=== PATIENT | female | born 1930 | race African-American/Black ===

== ENCOUNTER 2019-02-28 16:44 | Emergency (ER) | payer MEDICARE ==
[~2019-02-28] VITALS: Ht 162.6 cm; Wt 85.9 kg
[2019-02-28 16:59] VITALS: Ht 162.6 cm; Wt 85.9 kg
[2019-02-28 17:28] LABS: BASOPHILS 0.5 % (0-2); EOSINOPHILS 0.7 % (0-7); HEMATOCRIT 35.3 % (36.0-48.0); HEMOGLOBIN 12.2 g/dL (12-16); IMMATURE GRANULOCYTES 0.2 % (0-5); LYMPHOCYTES 25.3 % (15-50); MCH 30.6 pg (26.0-34.0); MCHC 34.6 g/dL (31.0-37.0); MCV 88.5 fL (80.0-100.0); MEAN PLATELET VOLUME 8.9 fL (7.4-10.4); MONOCYTES 9.3 % (2-11); PLATELET COUNT 209 10x3/uL (130-400); RBC 3.99 10x6/uL (4.00-5.40); RDW 13.9 % (11.5-14.5); WBC 6.1 10x3/uL (4.8-10.8)
[2019-02-28 17:44] LABS: ALBUMIN 3.3 g/dL (3.4-5.0); ALKALINE PHOSPHATASE 145 U/L (46-116); ALT (SGPT) 24 U/L (10-68); BILIRUBIN - TOTAL 0.43 mg/dL (0.2-1.3); CALC OSMOLALITY 278 mosm/kg (275-300); CALCIUM 10.8 mg/dL (8.5-10.1); CARBON DIOXIDE 27.5 mmol/L (21.0-32.0); CHLORIDE - SERUM 99 mmol/L (98-107); GLUCOSE 153 mg/dL (74-106); POTASSIUM - SERUM 4.4 mmol/L (3.5-5.1); SODIUM 136 mmol/L (136-145); UREA NITROGEN 25 mg/dL (7-18); eGFR NON AFRICAN AMERICAN 25 mL/min (90-120)
[2019-02-28 17:47] LABS: AMYLASE - SERUM 41 U/L (25-115); LIPASE 120 U/L (73-393)
[2019-02-28 17:48] LABS: TROPONIN-I < 0.017 ng/mL (0.000-0.060)
[2019-02-28 19:25] LABS: APPEARANCE CLEAR (CLEAR); BILIRUBIN NEGATIVE (NEGATIVE); COLOR STRAW (YELLOW); GLUCOSE NEGATIVE (NEGATIVE); KETONE NEGATIVE (NEGATIVE); NITRITE NEGATIVE (NEGATIVE); PROTEIN TRACE mg/dL (NEGATIVE); UROBILINOGEN NORMAL (NORMAL)
[2019-02-28 19:26] LABS: RED CELLS - URINE 0-5 /hpf (0-5)
[2019-02-28 19:27] LABS: BACTERIA MANY /hpf (NONE SEEN); EPITHELIAL CELLS 0-5 /hpf (0-5)
[2019-02-28 22:27] VITALS: BP 162/82
== END 2019-02-28 22:30 | disposition other institution (70) ==
LOC: D.ER 16:44
PROVIDERS: Family Medicine
DX: C85.90 Non-Hodgkin lymphoma, unspecified, unspecified site (principal); R10.9 Unspecified abdominal pain; M54.5 Low back pain; N13.30 Unspecified hydronephrosis; N13.9 Obstructive and reflux uropathy, unspecified